=== PATIENT | female | born 1995 | race African-American/Black ===

== ENCOUNTER 2022-12-01 18:46 | Emergency (ER) | payer OTHER ==
[~2022-12-01] VITALS: Ht 162.6 cm; Wt 79.4 kg
[2022-12-01] MEDS ORDERED: BACITRACIN ZINC 0.9GM TP ONE (20:28)
[2022-12-01] MEDS ORDERED: CLEOCIN HCL300 MG PO (20:31)
== END 2022-12-01 20:50 | disposition home or self-care (01) ==
LOC: FSED 19:16
DX: O91.13 Abscess of breast associated with lactation (principal)
CPT/HCPCS: 99283